=== PATIENT | female | born 1995 | race Asian ===

== ENCOUNTER 2025-02-03 11:04 | Inpatient (IN) | payer OTHER ==
[2025-02-03] MEDS: LACTATED RINGERS SOLUTION 500 ML IV ONE ×2 (11:05→12:05)
[2025-02-03 11:41] LABS: ABSOLUTE IMMATURE GRANULOCYTES 0.07 x10^3/uL (0.0-0.031); BASOPHILS # 0.02 x10^3/uL (0.01-0.08); EOSINOPHIL % 0.4 % (0.7-5.8); EOSINOPHILS # 0.03 x10^3/uL (0.04-0.36); HEMOGLOBIN 11.6 g/dL (11.2-15.7); MCHC 33.1 g/dl (32.2-35.5); MEAN CELL VOLUME 91.9 fl (79.4-94.8); MEAN PLT VOLUME 10.6 fl (9.4-12.3); MONOCYTE % 12.7 % (4.7-12.5); PLATELET COUNT # 178 x10^3/uL (182-369); RDW 13.3 % (12.1-16.5)
[2025-02-03 11:48] LABS: INR 0.88 (0.83-1.09); PROTHROMBIN TIME (PATIENT) 9.7 SEC (9.7-13.0)
[2025-02-03 11:51] LABS: ACTIVATED PTT 27.4 SECONDS (25.2-36.5)
[2025-02-03 12:00] LABS: POTASSIUM 3.7 mmol/L (3.5-5.1)
[2025-02-03 12:01] LABS: CALCIUM 8.8 mg/dL (8.5-10.1)
[2025-02-03 12:02] LABS: BLOOD UREA NITROGEN 7.9 mg/dL (7-18)
[2025-02-03 12:05] LABS: CREATININE 0.4 mg/dL (0.55-1.3)
[2025-02-03 12:25] VITALS: BMI 24.1
[2025-02-03 14:10] LABS: COCAINE, UR NEGATIVE (NEGATIVE); METHADONE, UR NEGATIVE (NEGATIVE); PHENCYCLIDINE,URINE NEGATIVE (NEGATIVE); URINE BARBITURATES NEGATIVE (NEGATIVE)
[2025-02-03 14:23] LABS: OPIATES, URI NEGATIVE (NEGATIVE); URINE AMPHETAMINES NEGATIVE (NEGATIVE); URINE BENZODIAZEPINES NEGATIVE (NEGATIVE)
[2025-02-03] MEDS ORDERED: OXYTOCIN 30 UNITS in 0.9% NS 30 UNIT/500 ML INFUS.BAG IVPB ONE (14:43)
[2025-02-03] MEDS: OXYTOCIN 30 UNITS in 0.9% NS 30 UNIT/500 ML INFUS.BAG IVPB SCH ×2 (14:48→15:32)
[2025-02-03] MEDS: DINOPROSTONE 10 MG VAGINAL SUPPOSITORY VG ONE (14:48)
[2025-02-03] MEDS: LACTATED RINGERS SOLUTION 1,000 ML IV SCH (22:00)
[2025-02-03] MEDS ORDERED: FENTANYL/BUPIVACAINE/NS/PF - PCEA - 50 ML DISP.SYRIN EP ONE (22:52)
[2025-02-03] MEDS: FENTANYL/BUPIVACAINE/NS/PF - PCEA - 50 ML DISP.SYRIN EP SCH (23:10)
[2025-02-03] MEDS ORDERED: NALOXONE HCL 0.4 MG/ML VIAL IVPUSH PRN (23:17)
[2025-02-04] MEDS ORDERED: FENTANYL/BUPIVACAINE/NS/PF - PCEA - 50 ML DISP.SYRIN EP ONE (03:01)
[2025-02-04] MEDS ORDERED: OXYTOCIN 20 UNITS in 0.9% NS 20 UNIT/1,000 ML INFUS.BAG IV ONE ×2 (06:59→09:22)
[2025-02-04] MEDS ORDERED: METHYLERGONOVINE MALEATE 0.2 MG/1 ML AMP IM PRN (08:17)
[2025-02-04] MEDS ORDERED: BISACODYL 10 MG SUPP.RECT RC PRN (08:17)
[2025-02-04] MEDS: OXYTOCIN 20 UNITS in 0.9% NS 20 UNIT/1,000 ML INFUS.BAG IV SCH (08:30)
[2025-02-04 08:45] LABS: CORD BASE EXCESS -2.6 mmol/L (0-2); CORD HCO3 23.8 mmHg (20-29); CORD PCO2 47.1 mmHg (30-78); CORD pH 7.321 (7.14-7.44)
[2025-02-04] MEDS: IBUPROFEN 600 MG TABLET (FP) PO PRN (09:45)
[2025-02-04] MEDS ORDERED: IBUPROFEN 600 MG TABLET (FP) PO ONE (09:57)
[2025-02-04] MEDS: BENZOCAINE 20% 57 GM BOTTLE TP PRN (18:10)
[2025-02-04] MEDS: oxyCODONE HCL 5 MG TABLET PO PRN (21:12)
[2025-02-05 07:34] LABS: ABSOLUTE IMMATURE GRANULOCYTES 0.09 x10^3/uL (0.0-0.031); BASOPHILS # 0.02 x10^3/uL (0.01-0.08); EOSINOPHIL % 0.4 % (0.7-5.8); EOSINOPHILS # 0.05 x10^3/uL (0.04-0.36); HEMATOCRIT 30.3 % (34.1-44.9); MEAN CELL VOLUME 93.5 fl (79.4-94.8); MONOCYTE # 1.45 x10^3/uL (0.24-0.86); MONOCYTE % 11.3 % (4.7-12.5); PLATELET COUNT # 133 x10^3/uL (182-369); RDW 13.4 % (12.1-16.5)
[2025-02-05] MEDS: WITCH HAZEL 50% (TUCKS) 40 PAD/JAR PAD TP PRN (18:40)
[2025-02-05] MEDS: BENZOCAINE 28 GM HEMORRHOIDAL OINTMENT TP PRN (20:52)
[2025-02-05] MEDS: SENNOSIDES/DOCUSATE COMBO (SENNA PLUS) TABLET (UD) PO PRN (22:02)
[2025-02-06] MEDS: ACETAMINOPHEN 325 MG TABLET (FP) PO PRN (09:16)
[2025-02-06 09:44] VITALS: BP 107/70; PULSE 68; RESP 18; TEMP 98.1
== END 2025-02-06 13:00 | disposition home or self-care (01) | DRG 373 ==
LOC: JLDR 11:04 → J3W 02-04 10:45
PROVIDERS: ADMIT Obstetrics & Gynecology; ATTEND Obstetrics & Gynecology
PROC: 10E0XZZ Delivery of Products of Conception, External Approach (ICD-10-PCS; principal; 2025-02-04)
PROC: 0W8NXZZ Division of Female Perineum, External Approach (ICD-10-PCS; 2025-02-04)
DX: O41.03X0 Oligohydramnios, third trimester, not applicable or unspecified (principal); Z3A.37 37 weeks gestation of pregnancy; Z37.0 Single live birth
CPT/HCPCS: 36415; 36600; 59409; 80048; 80307; 82803; 85025; 85610; 85730; 86780; 86850; 86900; 86901